=== PATIENT | male | born 1990 | race American Indian/Alaskan Native ===

== ENCOUNTER 2017-07-28 19:44 | Emergency (ER) | payer OTHER ==
[2017-07-28 20:03] VITALS: BP 141/82
[2017-07-28] MEDS ORDERED: BOOSTRIX IM ONE (20:49)
[2017-07-28] MEDS ORDERED: NORCO 10/325 PO ONE (20:49)
[2017-07-28] MEDS ORDERED: AUGMENTIN 875 MG PO ONE (20:50)
[2017-07-28] MEDS ORDERED: MOTRIN PO ONE (20:50)
[2017-07-28] MEDS ORDERED: XYLOCAINE 2% INFILTRATI ONE (20:50)
--- NOTE | 2017-07-28 20:52 | Emergency Department Report ---
- General Chief Complaint: Laceration/Recheck/Suture Stated Complaint: LEFT INDEX FINGER LACERATION Time Seen by Provider: 07/28/17 20:49 Source: patient Mode of arrival: Ambulatory Limitations: No Limitations - History of Present Illness Initial Comments: 27-year-old male past medical history none presents with complaint of laceration to left index fingertip. Patient states he accidentally cut his left index fingertip while cutting lettuce at home. Denies any other injuries. Unaware of tetanus status. Visible laceration involving nail bed left distal index fingertip. -: This evening Extremity Location: Left: Hand Place: home Context: accidental Associated Symptoms: pain - Related Data Previous Rx's Medication Instructions Recorded Last Taken Type Acetaminophen/Codeine [Tylenol 1 tab PO Q6H PRN #10 tab 07/28/17 Unknown Rx /Codeine # 3 tab] Amoxicillin/Potassium Clav 1 each PO BID #20 tablet 07/28/17 Unknown Rx [Augmentin 875-125 Tablet] Ibuprofen [Motrin] 800 mg PO Q8HR PRN #25 tablet 07/28/17 Unknown Rx Allergies Allergy/AdvReac Type Severity Reaction Status Date / Time No Known Allergies Allergy Verified 07/28/17 20:56 ED Review of Systems ROS: Stated complaint: LEFT INDEX FINGER LACERATION Other details as noted in HPI Constitutional: denies: chills, fever Eyes: denies: eye pain, eye discharge, vision change ENT: denies: ear pain, throat pain Respiratory: denies: cough, shortness of breath, wheezing Cardiovascular: denies: chest pain, palpitations Endocrine: no symptoms reported Gastrointestinal: denies: abdominal pain, nausea, diarrhea Genitourinary: denies: urgency, dysuria Musculoskeletal: denies: back pain, joint swelling, arthralgia Skin: denies: rash, lesions Neurological: denies: headache, weakness, paresthesias Psychiatric: denies: anxiety, depression Hematological/Lymphatic: denies: easy bleeding, easy bruising ED Past Medical Hx - Past Medical History Previous Medical History?: No - Surgical History Past Surgical History?: No - Social History Smoking Status: Never Smoker Substance Use Type: Alcohol - Medications Home Medications: Home Medications Medication Instructions Recorded Confirmed Last Taken Type Acetaminophen/Codeine [Tylenol 1 tab PO Q6H PRN #10 tab 07/28/17 Unknown Rx /Codeine # 3 tab] Amoxicillin/Potassium Clav 1 each PO BID #20 tablet 07/28/17 Unknown Rx [Augmentin 875-125 Tablet] Ibuprofen [Motrin] 800 mg PO Q8HR PRN #25 tablet 07/28/17 Unknown Rx ED Physical Exam - General Limitations: No Limitations General appearance: alert, in no apparent distress - Head Head exam: Present: atraumatic, normocephalic - Eye Eye exam: Present: normal appearance, PERRL, EOMI - ENT ENT exam: Present: mucous membranes moist - Neck Neck exam: Present: normal inspection - Respiratory Respiratory exam: Present: normal lung sounds bilaterally. Absent: respiratory distress - Cardiovascular Cardiovascular Exam: Present: regular rate, normal rhythm. Absent: systolic murmur, diastolic murmur, rubs, gallop - GI/Abdominal GI/Abdominal exam: Present: soft, normal bowel sounds - Rectal Rectal exam: Present: deferred - Extremities Exam Extremities exam: Present: normal inspection - Expanded Upper Extremity Exam Left Elbow exam: Present: normal inspection, full ROM Forearm Wrist exam: Present: normal inspection, full ROM Hand Wrist exam: Present: full ROM Hand L/R Back: 1 - laceration here Neuro motor exam: Present: wrist extension intact, thumb opposition intact, thumb IP flexion intact, thumb adduction intact, fingers 2-5 abduction intact Neurosensory exam: Present: radial nerve intact, ulnar nerve intact, median nerve intact Vascular: Present: normal capillary refill, radial pulse, brachial pulse, ulnar pulse - Back Exam Back exam: Present: normal inspection - Neurological Exam Neurological exam: Present: alert, oriented X3 - Psychiatric Psychiatric exam: Present: normal affect, normal mood - Skin Skin exam: Present: warm, dry, intact, normal color. Absent: rash ED Course Vital Signs 07/28/17 07/28/17 19:57 21:22 Temperature 99.0 F Pulse Rate 85 Respiratory 17 18 Rate Blood Pressure 141/82 O2 Sat by Pulse 98 Oximetry - Laceration /Wound Repair Left Distal Finger Wound Location: upper extremity (left distal index finger) Wound Length (cm): 1 Wound's Depth, Shape: irregular, flap, nail-avulsed Irrigated w/ Saline (ccs): 500 Wound Debrided: minimal Wound Repaired With: sutures Suture Size/Type: 5:0, nylon Number of Sutures: 3 Layer Closure?: No Sterile Dressing Applied?: Yes (finger cot gauze) Progress: Digital block performed. 3 sutures placed at distal fingertip. Nailbed slightly lacerated. Moderate closure achieved with sutures. Minimal bleeding. Covered with antibiotic ointment and gauze afterward. ED Medical Decision Making - Medical Decision Making A/P: Left distal finger laceration 1-sutures to be removed in 7-10 days 2-tetanus updated today 3-Motrin when necessary, triple antibiotic ointment, course of Keflex 4- pt advised to return to the ED for any fevers chills pus drainage erythema at site of laceration Critical care attestation.: If time is entered above; I have spent that time in minutes in the direct care of this critically ill patient, excluding procedure time. ED Disposition Clinical Impression: Laceration of index finger with damage to nail Qualifiers: Encounter type: initial encounter Foreign body presence: without foreign body Laterality: left Qualified Code(s): S61.311A - Laceration without foreign body of left index finger with damage to nail, initial encounter Disposition: TO HOME OR SELFCARE Is pt being admited?: No Does the pt Need Aspirin: No Condition: Stable Instructions: Finger Laceration (ED), Suture Care (ED), Laceration (ED) Additional Instructions: Have sutures removed in approximately 7-10 days Prescriptions: Acetaminophen/Codeine [Tylenol /Codeine # 3 tab] 1 tab PO Q6H PRN #10 tab PRN Reason: Pain Amoxicillin/Potassium Clav [Augmentin 875-125 Tablet] 1 each PO BID #20 tablet Ibuprofen [Motrin] 800 mg PO Q8HR PRN #25 tablet PRN Reason: Pain Referrals: PRIMARY CARE, [Primary Care Provider] - 3-5 Days [facility] [Provider Group] - 3-5 Days [facility] [Outside] - 3-5 Days Forms: Accompanied Note, Work/School Release Form(ED) Time of Disposition: 22:38
[2017-07-28] MEDS ORDERED: TRIPLE ANTIBIOTIC TP ONE ×2 (20:54→20:55)
[2017-07-28] MEDS ORDERED: XYLOCAINE TOPICAL 2% 5ML ONE (21:20)
[2017-07-28] MEDS ORDERED: XYLOCAINE TOPICAL 2% 5ML TP ONE (23:27)
== END 2017-07-28 22:52 | disposition home or self-care (01) ==
LOC: ED 19:44
DX: S61.311A Laceration without foreign body of left index finger with damage to nail, initial encounter (principal); W26.8XXA Contact with other sharp object(s), not elsewhere classified, initial encounter; Y93.89 Activity, other specified; Y92.89 Other specified places as the place of occurrence of the external cause; Y99.8 Other external cause status
CPT/HCPCS: 90471; 90715; A6250

== ENCOUNTER 2018-11-16 18:21 | Emergency (ER) | payer OTHER ==
[2018-11-16] MEDS ORDERED: DUONEB *Not for PRN Use IH ONE ×2 (18:38→20:24)
[2018-11-16] MEDS ORDERED: DECADRON IM ONE (19:14)
[2018-11-16] MEDS ORDERED: PROVENTIL IH ONE (19:15)
--- NOTE | 2018-11-16 19:17 | Event Note ---
ED Screening Note Date of service: 11/16/18 Time: 19:13 ED Screening Note: 28 y o male presents with astma exacebation This initial assessment/diagnostic orders/clinical plan/treatment(s) is/are subject to change based on patients health status, clinical progression and re- assessment by fellow clinical providers in the ED. Further treatment and workup at subsequent clinical providers discretion. Patient/guardian urged not to elope from the ED as their condition may be serious if not clinically assessed and managed. Initial orders include: albuterol decadron cxr
--- NOTE | 2018-11-16 19:46 | XRay Report ---
CHEST PA AND LATERAL VIEWS INDICATION: cough. COMPARISON: None FINDINGS: Support devices: None Heart: Normal Lungs/Pleura: No acute pulmonary or pleural findings. IMPRESSION: 1. No significant abnormality. Signer Name: Jaciel Kim MD Signed: 11/16/2018 7:42 PM Workstation Name: [id number]
[2018-11-16] MEDS ORDERED: NACL 0.9% 1000 ML 1,000 ML IV ONE (20:20)
[2018-11-16] MEDS ORDERED: ZOFRAN IV ONE (20:20)
[2018-11-16] MEDS ORDERED: MAGNESIUM SULFATE 2GM/50ML 2 GM/50 ML BAG IV ONE (20:21)
[2018-11-16 20:27] VITALS: BP 162/93
[2018-11-16] MEDS ORDERED: SOLU-Medrol IV ONE (20:35)
[2018-11-16 20:38] LABS: Basophils % (Auto) 0.3 % (0.0-1.8); Eosinophils # (Auto) 0.3 K/mm3 (0.0-0.4); Eosinophils % (Auto) 3.3 % (0.0-4.3); Hematocrit 45.6 % (35.5-45.6); Hemoglobin 15.2 gm/dl (11.8-15.2); Lymphocytes # (Auto) 1.3 K/mm3 (1.2-5.4); Mean Corpuscular HGB Conc 33 % (32-34); Mean Corpuscular Volume 87 fl (84-94); Monocytes # (Auto) 0.9 K/mm3 (0.0-0.8); Monocytes % (Auto) 9.1 % (0.0-7.3); Platelet Count 165 K/mm3 (140-440); Red Blood Count 5.23 M/mm3 (3.65-5.03); Red Cell Distribution Width 13.6 % (13.2-15.2)
[2018-11-16 21:05] LABS: Alanine Aminotransferase 31 units/L (7-56); Albumin 4.6 g/dL (3.9-5); BUN/Creatinine Ratio 9; Blood Urea Nitrogen 12 mg/dL (9-20); Calcium 9.9 mg/dL (8.4-10.2); Hemolysis Index 8
--- NOTE | 2018-11-16 22:35 | Emergency Department Report ---
ED Asthma HPI - General Chief Complaint: Adult Asthma Stated Complaint: CHASE Time Seen by Provider: 11/16/18 19:11 Source: patient Mode of arrival: Ambulatory Limitations: No Limitations - History of Present Illness Initial Comments: This is a 28-year-old -[place] male with history of asthma, who presents to ED with cough, wheezing, runny nose, nausea, vomiting, for 2 days. The patient stated his nausea, vomiting and URI symptoms started yesterday, but is wheezing and exacerbation of his asthma started today. This prompted his visit to the ED. He denies any fever, chills, chest pain. He uses an inhaler prior to coming to the ED without relief. MD Complaint: "asthma attack", wheezing -: Gradual Asthma History: childhood onset Severity: moderate Context: recent URI Associated Symptoms: dry cough. denies: fever, chest pain Treatments Prior to Arrival: inhaled bronchodilator - Related Data Current Asthma Therapy: inhaled bronchodilator Previous Rx's Medication Instructions Recorded Last Taken Type Acetaminophen/Codeine [Tylenol 1 tab PO Q6H PRN #10 tab 07/28/17 Unknown Rx /Codeine # 3 tab] Amoxicillin/Potassium Clav 1 each PO BID #20 tablet 07/28/17 Unknown Rx [Augmentin 875-125 Tablet] Ibuprofen [Motrin] 800 mg PO Q8HR PRN #25 tablet 07/28/17 Unknown Rx Ondansetron [Zofran Odt] 4 mg PO Q8HR #10 tab.rapdis 11/16/18 Unknown Rx Prednisone [predniSONE 5 mg (6-Day 5 mg PO .TAPER #1 tab.ds.pk 11/16/18 Unknown Rx Pack, 21 Tabs)] Allergies Allergy/AdvReac Type Severity Reaction Status Date / Time No Known Allergies Allergy Verified 07/28/17 20:56 ED Review of Systems ROS: Stated complaint: CHASE Other details as noted in HPI Comment: All other systems reviewed and negative ENT: denies: ear pain Respiratory: cough, wheezing. denies: orthopnea Cardiovascular: denies: chest pain Gastrointestinal: nausea, vomiting Genitourinary: denies: urgency, dysuria Musculoskeletal: denies: back pain ED Past Medical Hx - Past Medical History Previous Medical History?: Yes Hx Asthma: Yes - Surgical History Past Surgical History?: No - Social History Smoking Status: Never Smoker Substance Use Type: None - Medications Home Medications: Home Medications Medication Instructions Recorded Confirmed Last Taken Type Acetaminophen/Codeine [Tylenol 1 tab PO Q6H PRN #10 tab 07/28/17 Unknown Rx /Codeine # 3 tab] Amoxicillin/Potassium Clav 1 each PO BID #20 tablet 07/28/17 Unknown Rx [Augmentin 875-125 Tablet] Ibuprofen [Motrin] 800 mg PO Q8HR PRN #25 tablet 07/28/17 Unknown Rx Ondansetron [Zofran Odt] 4 mg PO Q8HR #10 tab.rapdis 11/16/18 Unknown Rx Prednisone [predniSONE 5 mg (6-Day 5 mg PO .TAPER #1 tab.ds.pk 11/16/18 Unknown Rx Pack, 21 Tabs)] ED Physical Exam - General Limitations: No Limitations General appearance: alert, in no apparent distress - Head Head exam: Present: atraumatic, normocephalic - Eye Eye exam: Present: normal appearance, PERRL, EOMI Pupils: Present: normal accommodation - ENT ENT exam: Present: normal exam - Neck Neck exam: Present: normal inspection - Respiratory Respiratory exam: Present: wheezes - Cardiovascular Cardiovascular Exam: Present: regular rate, normal rhythm - GI/Abdominal GI/Abdominal exam: Present: soft, normal bowel sounds - Neurological Exam Neurological exam: Present: alert, oriented X3, CN II-XII intact ED Course Vital Signs 11/16/18 11/16/18 11/16/18 18:42 19:01 20:27 Temperature 98.7 F Pulse Rate 89 Pulse Rate [ 91 H Anterior Bilateral] Respiratory 22 Rate Respiratory 18 Rate [Anterior Bilateral] Blood Pressure 165/102 162/93 O2 Sat by Pulse 95 98 Oximetry 11/16/18 11/16/18 20:30 21:00 Temperature Pulse Rate Pulse Rate [ 110 H Anterior Bilateral] Respiratory 20 Rate Respiratory 22 Rate [Anterior Bilateral] Blood Pressure O2 Sat by Pulse Oximetry ED Medical Decision Making - Lab Data Result diagrams: 11/16/18 20:25 11/16/18 20:25 - Medical Decision Making 28-year-old male with URI, asthma exacerbation, nausea and vomiting. In ED patient received Zofran IV, normal saline 1 L, magnesium sulfate 2 g IV, Solu- Medrol 125 IV. His symptoms improved tremendously, to the point where he wanted to go home. Patient was discharged home with a Medrol Dosepak, and Zofran. He is URI symptoms is likely due to a virus, which precipitated his asthma exacerbation. Vomiting and nausea likely secondary to a viral illness prodrome, viral enteritis, he was advised to eat a bland diet, use Zofran when necessary, return to ED if he starts having abdominal pain and fever. As this moment he had denied any abdominal pain. Critical care attestation.: If time is entered above; I have spent that time in minutes in the direct care of this critically ill patient, excluding procedure time. ED Disposition Clinical Impression: Upper respiratory infection, viral Asthma exacerbation attacks Qualifiers: Asthma severity: mild Asthma persistence: intermittent Qualified Code(s): J45.21 - Mild intermittent asthma with (acute) exacerbation Vomiting Qualifiers: Vomiting type: unspecified Vomiting Intractability: non-intractable Nausea pres ence: with nausea Qualified Code(s): R11.2 - Nausea with vomiting, unspecified Disposition: DC-01 TO HOME OR SELFCARE Is pt being admited?: No Does the pt Need Aspirin: No Condition: Stable Prescriptions: Prednisone [predniSONE 5 mg (6-Day Pack, 21 Tabs)] 5 mg PO .TAPER #1 tab.ds.pk Ondansetron [Zofran Odt] 4 mg PO Q8HR #10 tab.rapdis Referrals: PRIMARY CARE, [Primary Care Provider] - 3-5 Days Forms: Work/School Release Form(ED)
== END 2018-11-16 22:30 | disposition home or self-care (01) ==
LOC: ED 18:21
DX: J45.901 Unspecified asthma with (acute) exacerbation (principal); J06.9 Acute upper respiratory infection, unspecified; Z79.899 Other long term (current) drug therapy
CPT/HCPCS: 36415; 71046; 80053; 83690; 85025; 94640; 96365; 96375; 99284; J2405; J2930; J3475; J7030; 94644